=== PATIENT | male | born 1965 | race Caucasian/White ===

== ENCOUNTER 2018-06-08 11:06 | Emergency (ER) | payer OTHER ==
[~2018-06-08] VITALS: Ht 172.7 cm; Wt 95.2 kg
== END 2018-06-08 13:10 | disposition home or self-care (01) ==
LOC: ED 11:06
DX: S16.1XXA Strain of muscle, fascia and tendon at neck level, initial encounter (principal); F17.200 Nicotine dependence, unspecified, uncomplicated; V49.60XA Unspecified car occupant injured in collision with unspecified motor vehicles in traffic accident, initial encounter; Y92.411 Interstate highway as the place of occurrence of the external cause
CPT/HCPCS: 72125; 99283-25